=== PATIENT | female | born 1970 | race African-American/Black ===

== ENCOUNTER 2023-11-24 20:45 | Emergency (ER) | payer MEDICAID ==
[~2023-11-24] VITALS: Ht 165.1 cm; Wt 78.0 kg
[2023-11-24 20:57] VITALS: TEMP 97.9; O2SAT 100
[2023-11-24 21:01] VITALS: BP 146/91; PULSE 90; RESP 18; O2SAT 98
[2023-11-24 21:20] LABS: EOSINOPHILS % 4.3 % (0.0-5.0); HEMATOCRIT. 40.6 % (36.0-48.0); HEMOGLOBIN. 13.9 g/dL (12.0-16.0); LYMPHOCYTES % 37.5 % (20.0-50.0); MEAN CORPUSCULAR HEMOGLOBIN 30.8 pg (28.0-32.0); MEAN CORPUSCULAR HGB CONC 34.2 g/dL (31.0-37.0); MEAN CORPUSCULAR VOLUME 89.8 fL (81.0-99.0); MEAN PLATELET VOLUME 9.3 fl (7.4-10.4); NEUTROPHILS % 49.2 % (40.0-76.0); PLATELET 207 x1000/uL (130-400); RED BLOOD CELL COUNT 4.52 mill/uL (4.2-5.4); RED CELL DISTRIBUTION WIDTH 13.8 % (11.6-14.6); WHITE BLOOD COUNT 4.3 x1000/uL (4.5-11.0)
[2023-11-24 21:26] LABS: CHLORIDE 107 mEq/L (98-107); POTASSIUM 3.6 mEq/L (3.5-5.1); SODIUM 141 mEq/L (136-145)
[2023-11-24 21:27] LABS: CALCIUM 9.6 mg/dL (8.7-10.4); CARBON DIOXIDE 29 mEq/L (21-32)
[2023-11-24 21:32] LABS: CREATININE 0.8 mg/dL (0.6-1.0); GLUCOSE 107 mg/dL (70-105); UREA NITROGEN BLOOD 14 mg/dL (9-23)
[2023-11-24 21:33] LABS: TROPONIN I HIGH SENSITIVITY 18 ng/L (3.0-34)
[2023-11-25] MEDS ORDERED: MAG-55 MT (07:07)
[2023-11-25] MEDS ORDERED: TOPUD MT (07:07)
[2023-11-25] MEDS ORDERED: PROT20 MT (07:07)
[2023-11-25] MEDS: ACETAMINOPHEN 325MG TABLET PO ONE (07:11)
[2023-11-25] MEDS: PANTOPRAZOLE 40MG DR TABLET PO ONE (07:11)
[2023-11-25] MEDS: MAGNESIUM/ALUMINUM HYDROXIDE/SIMETHICONE 30ML UDC PO ONE (07:11)
== END 2023-11-25 07:35 | disposition home or self-care (01) ==
LOC: ER 20:45
DX: R07.89 Other chest pain (principal); R06.02 Shortness of breath; E78.00 Pure hypercholesterolemia, unspecified; I10 Essential (primary) hypertension
CPT/HCPCS: 36415; 71045; 80048; 84484; 85025; 93005; 99285

== ENCOUNTER 2023-12-13 00:29 | Emergency (ER) | payer BC, MEDICAID ==
[~2023-12-13] VITALS: Ht 165.1 cm; Wt 77.0 kg
[~2023-12-13 00:29] MED LIST: MAG-55 MT; PROT20 MT; TOPUD MT
[2023-12-13 00:39] VITALS: BP 114/67; TEMP 98.2; O2SAT 97
[2023-12-13 00:40] VITALS: PULSE 93; O2SAT 99
[2023-12-13 01:20] VITALS: RESP 16
== END 2023-12-13 04:38 ==
LOC: ER 00:29
DX: S01.81XA Laceration without foreign body of other part of head, initial encounter (principal); W18.30XA Fall on same level, unspecified, initial encounter; Y93.01 Activity, walking, marching and hiking; Y92.89 Other specified places as the place of occurrence of the external cause; Y99.8 Other external cause status
CPT/HCPCS: 12011; 99282; Z7610